=== PATIENT | male | born 1990 | race American Indian/Alaskan Native ===

== ENCOUNTER 2019-06-06 17:18 | Emergency (ER) | payer SELFPAY ==
[2019-06-06 17:22] VITALS: BP 126/69
--- NOTE | 2019-06-06 17:30 | Emergency Department Report ---
Blank Doc - Documentation Documentation: 29-year-old male that presents with left foot and ankle pain. This initial assessment/diagnostic orders/clinical plan/treatment(s) is/are subject to change based on patient's health status, clinical progression and re- assessment by fellow clinical providers in the ED. Further treatment and workup at subsequent clinical providers discretion. Patient/guardians urged not to elope from the ED as their condition may be serious if not clinically assessed and managed. Initial orders include: 1- Patient sent to [facility] for further evaluation and treatment 2- xrays
--- NOTE | 2019-06-06 18:18 | XRay Report ---
LEFT FOOT 3 VIEWS INDICATION / CLINICAL INFORMATION: foot pain COMPARISON: None available. FINDINGS: BONES / JOINT(S): No acute fracture or subluxation. No significant arthritis. SOFT TISSUES: No significant abnormality. ADDITIONAL FINDINGS: None. Signer Name: Tripp Patton MD Signed: 06/06/2019 6:13 PM Workstation Name: [id number]
--- NOTE | 2019-06-06 18:29 | XRay Report ---
LEFT ANKLE 3 VIEWS INDICATION / CLINICAL INFORMATION: ankle pain COMPARISON: None available. FINDINGS: BONES / JOINT(S): No acute fracture or subluxation. There is mild degenerative change in the posterio r aspect of the talonavicular joint. SOFT TISSUES: No significant abnormality. ADDITIONAL FINDINGS: None. Signer Name: Tripp Patton MD Signed: 06/06/2019 6:24 PM Workstation Name: [id number]
--- NOTE | 2019-06-06 18:56 | Emergency Department Report ---
HPI - General Chief Complaint: Extremity Injury, Lower Time Seen by Provider: 06/06/19 17:28 - HPI HPI: 29-year-old -[place] male presents to the emergency department with a 2- 3 day history of left foot pain towards the medial midfoot. He denies any trauma or injury. He does work in a warehouse and wears steel toed boots. Pain worsens with ambulation but he is able to do so. He has not seen anyone regarding his symptoms. He has not taken anything for his symptoms prior to presentation. No past medical history. ED Past Medical Hx - Past Medical History Previous Medical History?: No - Surgical History Past Surgical History?: No - Social History Smoking Status: Current Every Day Smoker Substance Use Type: Alcohol - Medications Home Medications: Home Medications Medication Instructions Recorded Confirmed Last Taken Type Ibuprofen [Motrin 600 MG tab] 600 mg PO Q8H PRN #20 tablet 06/06/19 Unknown Rx ED Review of Systems ROS: Stated complaint: POSS FOOT FRACTURE Other details as noted in HPI Comment: All other systems reviewed and negative Constitutional: denies: chills, fever Musculoskeletal: arthralgia. denies: joint swelling Skin: denies: rash, lesions Neurological: denies: numbness, paresthesias Physical Exam - Physical Exam Vital Signs: Vital Signs 06/06/19 17:21 Temperature 98.4 F Pulse Rate 79 Respiratory 18 Rate Blood Pressure 126/69 O2 Sat by Pulse 98 Oximetry Physical Exam: GENERAL: The patient is well-developed well-nourished. HENT: Normocephalic. Atraumatic. Patient has moist mucous membranes. EYES: Extraocular motions are intact. NECK: Supple. Trachea is midline. ABDOMEN: There is no abdominal distention. SKIN: Skin is warm and dry. NEURO: The patient is awake, alert, and oriented. The patient is cooperative. The patient has no focal neurologic deficits. Normal speech. MUSCULOSKELETAL: There is some reproducible tenderness to palpation to the medial left midfoot no obvious deformity. +2 over 4 pedal pulse and capillary refill less than 2 seconds. ED Course Vital Signs 06/06/19 17:21 Temperature 98.4 F Pulse Rate 79 Respiratory 18 Rate Blood Pressure 126/69 O2 Sat by Pulse 98 Oximetry ED Medical Decision Making - Radiology Data interpreted by me: X-ray of the left foot and ankle does not show any fracture, dislocation or any acute process. - Medical Decision Making Patient presents with atraumatic left foot pain. X-ray was done of the foot and ankle that does not show any fracture, dislocation or any acute process. He will be given a perception for anti-inflammatories and a referral for podiatry. He will return to the ER with any worsening of his symptoms or any acute distress. No erythema, fluctuance, rash, lesions or deformity. - Differential Diagnosis tendinitis, gout, fracture, dislocation Critical Care Time: No Critical care attestation.: If time is entered above; I have spent that time in minutes in the direct care of this critically ill patient, excluding procedure time. ED Disposition Clinical Impression: Left foot pain, very. Disposition: TO HOME OR SELFCARE Is pt being admited?: No Condition: Stable Instructions: Arthralgia (ED) Additional Instructions: I am giving you a referral for a local colorer, Dr. Clark, to follow up regarding your foot pain. Return to the emergency Department with any worsening of your symptoms or any acute distress. Prescriptions: Ibuprofen [Motrin 600 MG tab] 600 mg PO Q8H PRN #20 tablet PRN Reason: Pain Referrals: JADYN CLARK DPM [Staff Physician] - 2-3 Days Forms: Work/School Release Form(ED) Time of Disposition: 18:58
== END 2019-06-06 19:32 | disposition home or self-care (01) ==
LOC: ED 17:18
DX: M79.672 Pain in left foot (principal); F17.200 Nicotine dependence, unspecified, uncomplicated

== ENCOUNTER 2020-06-02 17:57 | Emergency (ER) | payer SELFPAY ==
[2020-06-02] MEDS ORDERED: ONDANSETRON 4 MG ODT TAB PO ONE (19:06)
[2020-06-02] MEDS ORDERED: ONDANSETRON 4 MG ODT TAB ONE (19:06)
--- NOTE | 2020-06-02 19:08 | Event Note ---
ED Screening Note Date of service: 06/02/20 Time: 19:06 ED Screening Note: Pt c/o N/VD x 2 am and generalized abdominal pain This initial assessment/diagnostic orders/clinical plan/treatment(s) is/are subject to change based on patients health status, clinical progression and re- assessment by fellow clinical providers in the ED. Further treatment and workup at subsequent clinical providers discretion. Patient/guardian urged not to elope from the ED as their condition may be serious if not clinically assessed and managed. Initial orders include: zofran ODT labs
[2020-06-02 19:53] LABS: Alanine Aminotransferase 19 units/L (7-56); Albumin 4.8 g/dL (3.9-5); BUN/Creatinine Ratio 13; Blood Urea Nitrogen 13 mg/dL (9-20); Calcium 9.4 mg/dL (8.4-10.2); Hemolysis Index 28
[2020-06-02 20:04] LABS: Hematocrit 44.5 % (35.5-45.6); Hemoglobin 15.8 gm/dl (11.8-15.2); Mean Corpuscular HGB Conc 36 % (32-34); Mean Corpuscular Volume 96 fl (84-94); Platelet Count 235 K/mm3 (140-440); Red Blood Count 4.64 M/mm3 (3.65-5.03); Red Cell Distribution Width 13.6 % (13.2-15.2)
[2020-06-02 20:48] LABS: Bilirubin,Urine NEG (Negative); Blood,Urine NEG (Negative); Color,Urine Yellow (Yellow); Mucus,Urine 3+ /HPF; Protein,Urine <15 mg/dL mg/dL (Negative)
[2020-06-02 21:51] VITALS: BP 113/77
--- NOTE | 2020-06-02 22:00 | Emergency Department Report ---
ED N/V/D HPI - General Chief complaint: Abdominal Pain Stated complaint: ABD PAINS Time Seen by Provider: 06/02/20 18:48 Source: patient Mode of arrival: Ambulatory Limitations: No Limitations - History of Present Illness Initial comments: 30-year-old male presents emergency complaining of a couple. The abdominal pain is minimal reports no hematemesis no hematochezia no no hematuria no fever, chills, sweats. History of nausea vomiting and diarrhea with excessive vomiting prior to arrival. States that he ate some [place] food late Tuesday night and he began to have some unsettling to the stomach on Tuesday morning along with his girlfriend who has the same symptoms. His symptoms began to develop more MD complaint: nausea, vomiting, diarrhea -: Gradual Description of Vomiting: food contents Associated Abdominal Pain: No Severity: mild Quality: dull Consistency: constant Improves with: none Worsens with: none Context: possible food poisoning, sick contacts Associated Symptoms: denies other symptoms. denies: chest pain, diaphoresis, headaches, loss of appetite, shortness of breath, syncope - Related Data Previous Rx's Medication Instructions Recorded Last Taken Type Ibuprofen [Motrin 600 MG tab] 600 mg PO Q8H PRN #20 tablet 06/06/19 Unknown Rx Ciprofloxacin HCl [Ciprofloxacin 500 mg PO Q12HR #10 tab 06/02/20 Unknown Rx TAB] Hyoscyamine Subl [Levsin Sl 0.125 0.125 mg SL Q6HR PRN #20 tab 06/02/20 Unknown Rx TAB] Ondansetron [Zofran ODT TAB] 8 mg PO Q12HR #14 tab.rapdis 06/02/20 Unknown Rx Allergies Allergy/AdvReac Type Severity Reaction Status Date / Time No Known Allergies Allergy Unverified 06/06/19 17:20 ED Review of Systems ROS: Stated complaint: ABD PAINS Other details as noted in HPI Comment: All other systems reviewed and negative ED Past Medical Hx - Past Medical History Previous Medical History?: No - Surgical History Past Surgical History?: No - Social History Smoking Status: Current Every Day Smoker Substance Use Type: Alcohol - Medications Home Medications: Home Medications Medication Instructions Recorded Confirmed Last Taken Type Ibuprofen [Motrin 600 MG tab] 600 mg PO Q8H PRN #20 tablet 06/06/19 Unknown Rx Ciprofloxacin HCl [Ciprofloxacin 500 mg PO Q12HR #10 tab 06/02/20 Unknown Rx TAB] Hyoscyamine Subl [Levsin Sl 0.125 0.125 mg SL Q6HR PRN #20 tab 06/02/20 Unknown Rx TAB] Ondansetron [Zofran ODT TAB] 8 mg PO Q12HR #14 tab.rapdis 06/02/20 Unknown Rx ED Physical Exam - General Limitations: No Limitations General appearance: alert, in no apparent distress - Head Head exam: Present: atraumatic, normocephalic - Eye Eye exam: Present: normal appearance, PERRL, EOMI Pupils: Present: normal accommodation - ENT ENT exam: Present: normal exam, normal orophraynx, mucous membranes moist - Neck Neck exam: Present: normal inspection - Respiratory Respiratory exam: Present: normal lung sounds bilaterally. Absent: respiratory distress - Cardiovascular Cardiovascular Exam: Present: regular rate, normal rhythm. Absent: systolic murmur, diastolic murmur, rubs, gallop - GI/Abdominal GI/Abdominal exam: Present: soft, normal bowel sounds. Absent: distended, guarding - Rectal Rectal exam: Present: deferred - Extremities Exam Extremities exam: Present: normal inspection - Back Exam Back exam: Present: normal inspection - Neurological Exam Neurological exam: Present: alert, oriented X3 - Psychiatric Psychiatric exam: Present: normal affect, normal mood - Skin Skin exam: Present: warm, dry, intact, normal color. Absent: rash ED Course Vital Signs 06/02/20 06/02/20 19:05 21:44 Temperature 98.9 F 98.2 F Pulse Rate 88 86 Respiratory 16 14 Rate Blood Pressure 111/76 113/77 [Right] O2 Sat by Pulse 98 96 Oximetry ED Medical Decision Making - Lab Data Result diagrams: 06/02/20 19:13 06/02/20 19:13 - Radiology Data Radiology results: report reviewed - Medical Decision Making Patient presents to the emergency department with nausea, vomiting, diarrhea, differential diagnosis includes possible acute gastroenteritis. Abdominal examination without peritoneal signs. Currently patient is euvolemic without evidence of dehydration. No evidence of surgical abdomen or other acute medical emergency including bowel obstruction, viscus perforation, vascular catastroph e, appendicitis, cholecystitis at this time. Presentation not consistent with other acute emergent causes of vomiting and diarrhea at this time. No indication for abdominal imaging Plan supportive care, oral/IV rehydration, antiemetics and reassess Critical care attestation.: If time is entered above; I have spent that time in minutes in the direct care of this critically ill patient, excluding procedure time. ED Disposition Clinical Impression: Gastroenteritis Disposition: DC-01 TO HOME OR SELFCARE Is pt being admited?: No Does the pt Need Aspirin: No Condition: Stable Instructions: Gastroenteritis (ED) Prescriptions: Ciprofloxacin HCl [Ciprofloxacin TAB] 500 mg PO Q12HR #10 tab Hyoscyamine Subl [Levsin Sl 0.125 TAB] 0.125 mg SL Q6HR PRN #20 tab PRN Reason: abdominal cramps and spasms Ondansetron [Zofran ODT TAB] 8 mg PO Q12HR #14 tab.rapdis Referrals: PRIMARY CARE, [Primary Care Provider] - 3-5 Days [facility] [Provider Group] - 3-5 Days
== END 2020-06-02 22:21 | disposition home or self-care (01) ==
LOC: ED 17:57
DX: K52.89 Other specified noninfective gastroenteritis and colitis (principal); F17.200 Nicotine dependence, unspecified, uncomplicated
CPT/HCPCS: 36415; 80053; 81001; 83690; 85025; 99282; Q0162